=== PATIENT | female | born 1940 | race Caucasian/White ===

== ENCOUNTER 2016-08-29 14:30 | Emergency (ER) | payer OTHER, MEDICARE ==
[~2016-08-29] VITALS: Ht 160 cm; Wt 72.6 kg
[~2016-08-29 14:30] MED LIST: ARMOUR THYROID15 M1 PO; ARMOUR THYROID30 M1 PO; CYANOCOBAL1000 MCG/2 IM; CYCLOBENZAPRINE5 M2 PO; HYDROCHLOROTHIA25 M1 PO; XANAX0.5 M1 PO
--- NOTE | 2016-08-29 15:46 | ED CARDIAC/CP/PALPITATIONS ---
History of Present Illness General Chief Complaint: General Adult Stated Complaint: SENT BY DR ABREU FOR EVAL OF MID BACK PAIN Source: patient, family, old records Exam Limitations: no limitations Vital Signs & Intake/Output Vital Signs & Intake/Output Vital Signs Date Time Temp Pulse Resp B/P Pulse O2 O2 Flow FiO2 Ox Delivery Rate 08/29 1730 96.5 88 18 162/80 98 Room Air 08/29 1527 164/78 08/29 1516 98 Room Air 08/29 1438 97.8 98 20 179/93 97 Room Air ED Intake and Output 08/30 0000 08/29 1200 Intake Total Output Total Balance Patient 160 lb Weight Allergies Coded Allergies: Penicillins (Severe, ANAPHYLAXIS 10/08/15) codeine (RASH 10/08/15) Uncoded Allergies: STEROID (HYPERTENSION 10/08/15) Reconcile Medications Alprazolam (Xanax) 0.5 MG TABLET 1 TAB PO 4 TIMES/DAY ANXIETY (Reported) Cyanocobalamin (Vitamin B-12) (Cyanocobalamin Injection) 1,000 MCG/1 ML VIAL 1 ML IM Q30D SUPPLEMENT (Reported) Cyclobenzaprine HCl 5 MG TABLET 1 TAB PO TIDPRN PRN PAIN Hydrochlorothiazide 25 MG TABLET 1 TAB PO DAILY HTN Thyroid ([place] Thyroid) 15 MG TABLET 1 TAB PO DAILY THYROID (Reported) Thyroid ([place] Thyroid) 15 MG TABLET 1 TAB PO QMON THYROID (Reported) Thyroid,Pork ([place] Thyroid) 30 MG TABLET 1 TAB PO DAILY THYROID (Reported) Triage Note: PT TO ED C/O UPPER BACK PAIN AND CHEST PAIN. ALSO STATES HAS BEEN TAKING HER BP AT HOME AND IT HAS BEEN HIGH. CURRENT BP 179/93. C/O INDIGESTION TYPE CHEST PAIN. Triage Nurses Notes Reviewed? yes HPI: 76-year-old female with multiple medical complaints. She has history of hypertension, chronic upper back pain and fibromyalgia. 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 She was also getting some epigastric discomfort. Symptoms started yesterday evening after lifting a box she started feeling pain in the upper back. At 3 AM it woke her from sleep. She also states that she had a very spicy meal with possible sauce and pepperoni and she has history of reflux which caused some epigastric discomfort and burning sensation. She denies any actual chest pain or pressure sensation on her chest. There is no pain radiating into the back or tearing sensation. There is no neck pain or arm pain. Her pain is consistent with her usual for her myalgic pain she feels as though it is just worse than usual. She is not taking anything for pain. She notes that she believes she forgot to take her blood pressure medication yesterday but she did take her dose this morning (NANCY LEONARDO) Past History Travel History Traveled to [place] past 21 day No Medical History Any Pertinent Medical History? see below for history Cardiovascular: hypertension Musculoskeletal: fibromyalgia Psychiatric: anxiety Endocrine: hypothyroidism Surgical History Surgical History: non-contributory Psychosocial History What is your primary language Kosovan Tobacco Use: Never used ETOH Use: denies use Illicit Drug Use: denies illicit drug use Family History Hx Contributory? No (NANCY LEONARDO) Review of Systems Review of Systems Constitutional: Reports: see HPI. EENTM: Reports: no symptoms. Respiratory: Reports: no symptoms. Cardiovascular: Reports: see HPI. GI: Reports: see HPI. Genitourinary: Reports: no symptoms. Musculoskeletal: Reports: see HPI. Skin: Reports: no symptoms. Neurological/Psychological: Reports: no symptoms. Hematologic/Endocrine: Reports: no symptoms. Immunologic/Allergic: Reports: no symptoms. All Other Systems: Reviewed and Negative (NANCY LEONARDO) Physical Exam Physical Exam Cardiovascular: regular rate/rhythm Comments: Well-developed well-nourished person in no acute distress HEENT: Normal EENT exam, extraocular motion intact, no nystagmus. Pupils equally round and reactive to light. Nose is atraumatic. External auditory canal and Tympanic membranes clear. Pharynx normal. No swelling or edema. Neck: Supple, no lymphadenopathy, normal range of motion without pain or tenderness Back: Tenderness in the upper back at the medial scapular border region on the left side. No CVA tenderness. Full range of motion Cardiovascular: Regular rate and rhythms no murmurs, normal JVP Respiratory: Chest nontender. No respiratory distress. Breath sounds clear to auscultation bilaterally Abdomen: Soft, nontender nondistended, no appreciable organomegaly. Normal bowel sounds. No ascites Extremity: No edema, no calf tenderness to palpation, normal and equal pulses. Neuro: Alert oriented x3, motor sensory normal, cranial nerves II through XII grossly intact. Skin: No appreciable rash on exposed skin, skin is warm and dry. Psych: Mood and affect is normal, memory and judgment is normal. Core Measures ACS in differential dx? Yes Severe Sepsis Present: No Septic Shock Present: No (KENYON EARL,NANCY) Progress Differential Diagnosis: AMI, aortic dissection, atrial fibrillation, cholecystitis, CHF/pulm edema, costochondritis, hyperkalemia, hypovolemia, hyperthyroid, hyperventilation, intracranial hemorrhage, musculoskeletal pain, myocarditis, pancreatitis, pericarditis, pneumonia, pneumothorax, PSVT, pulmonary embolism, PUD/GERD, PVCs/PACs, respiratory failure, rib fracture, sepsis, unstable angina, V-fib/V-Tach, WPW syndrome Plan of Care: Orders Procedure Date/time Status GLYCOSYLATED HGB 08/29 1551 Active Telemetry/Personal Consultant 08/29 1537 Active THYROID STIMULATING HORMONE 08/29 1537 Complete TROPONIN LEVEL 08/29 1537 Complete T3 UPTAKE (THYROXINE BIND CAP) 08/29 1537 Complete FREE T4 08/29 1537 Complete D-DIMER 08/29 1537 Complete COMPREHENSIVE METABOLIC PANEL 08/29 1537 Complete CBC WITHOUT DIFFERENTIAL 08/29 1537 Complete EKG 08/29 1432 Active Laboratory Tests 08/29/16 1551: Hemoglobin A1c Pending 08/29/16 1551: TSH Cancelled, Free T4 Cancelled, Thyroxine Binding Indx Cancelled 08/29/16 1550: Anion Gap 13, Estimated GFR > 60, BUN/Creatinine Ratio 17.5, Glucose 111 H, Calcium 10.1, Total Bilirubin 1.0, AST 28, ALT 43, Alkaline Phosphatase 77, Troponin I < 0.01, Total Protein 8.9 H, Albumin 4.8, Globulin 4.1, Albumin/ Globulin Ratio 1.2, TSH 3.950, Free T4 0.56 L, Thyroxine Binding Indx 30.0, D- Dimer < 200, CBC w Diff NO MAN DIFF REQ, RBC 7.72 H, MCV 63.1 L, MCH 19.4 L, RDW 15.9 H, MPV 7.9, Gran % 74.6, Lymphocytes % 18.8 L, Monocytes % 5.7, Eosinophils % 0.6, Basophils % 0.3, Absolute Granulocytes 10.0 H, Absolute Lymphocytes 2.5, Absolute Monocytes 0.8 H, Absolute Eosinophils 0.1, Absolute Basophils 0, PUBS MCHC 30.8 L Diagnostic Imaging: Viewed by Me: Radiology Read. Discussed w/RAD: Radiology Read. CXR Impression: PATIENT: RUSS MORIN PRESENT AGE: 76 PATIENT ACCOUNT NO: [id number] : 41 LOCATION: ER ORDERING PHYSICIAN: NANCY EARL SERVICE DATE: 08/29/16 EXAM TYPE: RAD - XRY-CHEST XRAY, PA AND LATERAL EXAMINATION: XR CHEST CLINICAL INFORMATION: Chest pain COMPARISON: 07/02/2016 TECHNIQUE: PA and lateral views of the chest were obtained. FINDINGS: The lungs are clear with no focal consolidation. No evidence of pneumothorax, pulmonary edema, or pleural effusions. The cardiomediastinal silhouette is unremarkable. Left axillary clips are noted. No acute osseous findings. IMPRESSION: No acute cardiopulmonary findings. DICTATED BY: RAJIV MONTEJO MD DATE/TIME DICTATED:08/29/161549 BALLISTICS EXPERT FORENSIC:MELITA DATE/TIME TRANSCRIBED:08/29/161549 Initial ED EKG: NSR, rate (98), nonspecific ST T wave chg (INF) Prior EKG: unchanged Rhythm Strip: normal sinus rhythm Comments: Workup is unremarkable, did not feel so patient is having a dissection, her symptoms are pretty consistent with her fibromyalgia pain and reflux. Troponin and d-dimer are negative and chest x-ray is unremarkable. She was reevaluated and is feeling well and she is stable for discharge home (NANCY LEONARDO) Departure Departure Disposition: HOME OR SELF CARE Condition: Stable Clinical Impression Primary Impression: Upper back pain Secondary Impressions: GERD (gastroesophageal reflux disease) Qualifiers: Esophagitis presence: without esophagitis Qualified Code: K21.9 - Gastro-esophageal reflux disease without esophagitis Referrals: MIKE YBARRA MD (PCP/Family) Additional Instructions: Take your medications as directed. Follow-up with your primary care doctor or coding team lead as scheduled Departure Forms: Customer Survey General Discharge Information (NANCY LEONARDO) PA/MECHANICAL ESTIMATOR Co-Sign Statement Statement: ED Attending supervision documentation- [X] I saw and evaluated the patient. I have also reviewed all the pertinent lab results and diagnostic results. I agree with the findings and the plan of care as documented in the MADY's/MECHANICAL ESTIMATOR's documentation. [X] I have reviewed the ED Record and agree with the PA's/MECHANICAL ESTIMATOR's documentation. [] Additions or exceptions (if any) to the PAs/MECHANICAL ESTIMATOR's note and plan are summarized below: [] (DEMETRIO MARTINEZ,VALARIE) Critical Care Note Critical Care Note Critical Care Time: non-applicable (KENYON EARL,NANCY)
--- NOTE | 2016-08-29 15:57 | RADIOLOGY REPORT ---
EXAMINATION: XR CHEST CLINICAL INFORMATION: Chest pain COMPARISON: 07/02/2016 TECHNIQUE: PA and lateral views of the chest were obtained. FINDINGS: The lungs are clear with no focal consolidation. No evidence of pneumothorax, pulmonary edema, or pleural effusions. The cardiomediastinal silhouette is unremarkable. Left axillary clips are noted. No acute osseous findings. IMPRESSION: No acute cardiopulmonary findings.
[2016-08-29 16:03] LABS: ABSOLUTE BASOPHIL COUNT 0 /CUMM (0.0-0.2); ABSOLUTE EOSINOPHIL COUNT 0.1 /CUMM (0.0-0.7); ABSOLUTE LYMPH COUNT 2.5 /CUMM (1.2-3.4); ABSOLUTE MONOCYTE COUNT 0.8 /CUMM (0.10-0.60); BASOPHIL % 0.3 % (0.0-2.0); EOSINOPHIL % 0.6 % (0-5); GRANULOCYTE % 74.6 % (42.2-75.2); HEMATOCRIT 48.7 % (37-47); MEAN CORPUSCULAR HGB 19.4 PG (27.0-31.0); MEAN CORPUSCULAR HGB CONC 30.8 G/DL (33.0-37.0); MEAN CORPUSCULAR VOLUME 63.1 FL (81.0-99.0); MEAN PLATELET VOLUME 7.9 FL (7.4-10.4); PLATELET COUNT 241 /CUMM (130-400); RBC DISTRIBUTION WIDTH 15.9 % (11.5-14.5); WHITE BLOOD CELL COUNT 13.4 /CUMM (4.8-10.8)
[2016-08-29 16:13] LABS: RED BLOOD CELL CT 7.72 /CUMM (4.20-5.40)
[2016-08-29 17:30] VITALS: BP 162/80
== END 2016-08-29 17:32 ==
LOC: ERH 14:30
PROVIDERS: Physician Assistant Surgical
DX: M54.6 Pain in thoracic spine (principal); K21.9 Gastro-esophageal reflux disease without esophagitis; I10 Essential (primary) hypertension; R10.13 Epigastric pain; E03.9 Hypothyroidism, unspecified; Z79.899 Other long term (current) drug therapy
CPT/HCPCS: 93005; 93010

== ENCOUNTER 2018-03-11 01:00 | Emergency (ER) | payer OTHER, MEDICARE ==
[~2018-03-11] VITALS: Ht 157.5 cm; Wt 72.6 kg
[~2018-03-11 01:00] MED LIST changes: +ARMOUR THYROID60 M1 PO; +AZITHROMYCIN250 M1; +BYSTOLIC2.5 M1 PO
[2018-03-11 01:45] LABS: ABSOLUTE BASOPHIL COUNT 0.1 /CUMM (0.0-0.2); ABSOLUTE EOSINOPHIL COUNT 0.2 /CUMM (0.0-0.7); ABSOLUTE GRANULOCYTE CT 6.3 /CUMM (1.4-6.5); ABSOLUTE LYMPH COUNT 3.1 /CUMM (1.2-3.4); ABSOLUTE MONOCYTE COUNT 0.9 /CUMM (0.10-0.60); BASOPHIL % 0.6 % (0.0-2.0); EOSINOPHIL % 1.8 % (0-5); GRANULOCYTE % 59.9 % (42.2-75.2); MEAN CORPUSCULAR HGB 19.8 PG (27.0-31.0); MEAN CORPUSCULAR HGB CONC 31.5 G/DL (33.0-37.0); MEAN CORPUSCULAR VOLUME 62.9 FL (81.0-99.0); MEAN PLATELET VOLUME 7.9 FL (7.4-10.4); PLATELET COUNT 256 /CUMM (130-400); RED BLOOD CELL CT 6.68 /CUMM (4.20-5.40); WHITE BLOOD CELL COUNT 10.6 /CUMM (4.8-10.8)
--- NOTE | 2018-03-11 02:17 | ED GENERAL ADULT ---
History of Present Illness General Chief Complaint: General Adult Stated Complaint: HAND AND FEET WENT NUMB AFTER GI PREP,HIGH BP Source: patient Exam Limitations: no limitations Vital Signs & Intake/Output Vital Signs & Intake/Output ED Intake and Output 03/12 0000 03/11 1200 Intake Total 0 Output Total Balance 0 Intake, Oral 0 Patient 160 lb Weight Weight Reported by Patient Measurement Method Allergies Coded Allergies: Penicillins (Severe, ANAPHYLAXIS 04/11/17) aloe (HIVES, CONGESTION 04/11/17) codeine (RASH 04/11/17) dicyclomine (From BENTYL) (URINARY RETENTION 04/11/17) esomeprazole (From NEXIUM) (RED, "CAN'T BREATHE" 03/11/18) prednisone (HTN 04/11/17) Reconcile Medications Alprazolam (Xanax) 0.5 MG TABLET 1 TAB PO 4 TIMES/DAY ANXIETY (Reported) Azithromycin (Unknown Strength) TABLET (Unknown Dose) UNKNOWN (Reported) Cyanocobalamin (Vitamin B-12) (Cyanocobalamin Injection) 1,000 MCG/1 ML VIAL 1 ML IM Q30D SUPPLEMENT (Reported) Hydrochlorothiazide 25 MG TABLET 1 TAB PO DAILY HTN Nebivolol HCl (Bystolic) 2.5 MG TABLET 1 TAB PO DAILY HEART/BP (Reported) Thyroid,Pork ([place] Thyroid) 60 MG TABLET 1 TAB PO DAILY THYROID (Reported) Triage Note: PT TO ED C/O EDIL HAND AND BOTTOM OF FEET NUMBNESS AFTER TAKING MoviPrep FOR MORNING COLONOSCOPY. TOO K MAG [employer] A COUPLE OF DAYS AGO "IT DIDN'T CLEAN ME OUT, I JUST PASSED WATER" "I CALLED THEM AND THEY TOLD ME TO TRY THIS MoviPrep" STATES HAD 3 OR 4 BOOSTS YESTERDAY. "THE BOX SAID TO GET MY ELECTROLYTES CHECKED IF I DEVELOPED ANY NUMBNESS" NUMBNESS ;AST A COUPLE HOURS IN THE AFTERNOON, CAME BACK AT 2330, STILL PRESENT AT THIS TIME. BP AT 178/80. BP IN TRIAGE 159/79. CALLED DR KARRIE CALDWELL [phone], DID NOT LEAVE MESSAGE. CAME TO ED Triage Nurses Notes Reviewed? yes HPI: 77-year-old female thank you with the past medical history of hypertension, hypothyroidism, GERD, presented to the emergency department with numbness and tingling of hands and feet 1 day. The patient is undergoing bowel prep for a colonoscopy in 9 AM Friday morning with MoviPrep. The patient has not eaten solid food for the past 3 days and is just taking clear liquids. Her last p.o. intake was 11 and [place] Gatorade. Her bowel movements lately have been watery and clear. Does not complain of chest pain/shortness of breath/fevers/chills/weakness/ burning micturition/hematuria. (Idania Buitrago MD) Past History Travel History Traveled to [place] past 21 day No Medical History Any Pertinent Medical History? see below for history Cardiovascular: hypertension Gastrointestinal: constipation, GERD Musculoskeletal: fibromyalgia Psychiatric: anxiety Endocrine: hypothyroidism Surgical History Surgical History: non-contributory Psychosocial History What is your primary language Maltese Tobacco Use: Never used ETOH Use: denies use Illicit Drug Use: denies illicit drug use Family History Hx Contributory? Yes (Idania Buitrago MD) Review of Systems Review of Systems Constitutional: Reports: no symptoms. EENTM: Reports: no symptoms. Respiratory: Reports: no symptoms. Cardiovascular: Reports: no symptoms. GI: Reports: see HPI. Genitourinary: Reports: no symptoms. Musculoskeletal: Reports: no symptoms. Skin: Reports: no symptoms. Neurological/Psychological: Reports: see HPI, numbness, paresthesia, tingling. Denies: anxiety, ataxia, cognitive dysfunction, confusion, depressed, dementia, emotional problems, headache, pre-existing deficit, petit mal seizures, tremors, tonic-clonic seizures, unable to move lower ext, unable to move upper ext, weakness. Hematologic/Endocrine: Reports: no symptoms. Immunologic/Allergic: Reports: no symptoms. (Idania Buitrago MD) Physical Exam Physical Exam General Appearance: well developed/nourished, no apparent distress, alert, awake , comfortable Head: atraumatic, normal appearance Eyes: Bilateral: normal appearance, EOMI. Ears, Nose, Throat: normal pharynx, normal ENT inspection, hearing grossly normal Neck: normal inspection, supple Respiratory: normal breath sounds, chest non-tender, lungs clear Cardiovascular: regular rate/rhythm Peripheral Pulses: 4+ radial (R), 4+ radial (L), 4+ dorsalis pedis (R), 4+ dorsalis pedis (L) Gastrointestinal: normal bowel sounds, soft, non-tender, no organomegaly Extremities: normal inspection, no edema Neurologic/Psych: awake, alert, oriented x 3, normal gait, normal mood/affect, sensations dec b/l lower limbs Reflexes: 1+: knee (R), knee (L), ankle (R), ankle (L). 2+: bicep (R), bicep (L), tricep (L), tricep (L). Skin: normal color, warm/dry Core Measures ACS in differential dx? No CVA/TIA Diagnosis: No Sepsis Present: No Sepsis Focused Exam Completed? Yes (Idania Buitrago MD) Progress Differential Diagnoses I considered the following diagnoses in my evaluation of the patient: TIA? Hypokalemia? Plan of Care: Orders Procedure Date/time Status MAGNESIUM 03/11 123 Complete COMPREHENSIVE METABOLIC PANEL 03/11 123 Complete CBC WITHOUT DIFFERENTIAL 03/11 123 Complete Current Medications Sig/Von Start time Last Medication Dose Stop Time Status Admin Potassium Chloride 20 MEQ ONCE ONE 03/11 245 UNVr (Klor) 03/11 246 Laboratory Tests 03/11/18 0130: Anion Gap 11, Estimated GFR > 60, BUN/Creatinine Ratio 21.4, Glucose 112 H, Calcium 9.5, Magnesium 1.8, Total Bilirubin 1.0, AST 26, ALT 33, Alkaline Phosphatase 58, Total Protein 7.8, Albumin 4.2, Globulin 3.6, Albumin/Globulin Ratio 1.2, CBC w Diff NO MAN DIFF REQ, RBC 6.68 H, MCV 62.9 L, MCH 19.8 L, MCHC 31.5 L, RDW 16.0 H, MPV 7.9, Gran % 59.9, Lymphocytes % 29.1, Monocytes % 8.6, Eosinophils % 1.8, Basophils % 0.6, Absolute Granulocytes 6.3, Absolute Lymphocytes 3.1, Absolute Monocytes 0.9 H, Absolute Eosinophils 0.2, Absolute Basophils 0.1 Initial ED EKG: none (Idania Buitrago MD) Departure Departure Disposition: HOME OR SELF CARE Condition: Stable Clinical Impression Primary Impression: Hypokalemia due to loss of potassium Referrals: Larry MARTINEZ,Michael Argueta (PCP/Family) Additional Instructions: -Please follow-up with your primary care physician after discharge -Please follow-up with your advertising sales manager after discharge -Please come to the emergency department if you have worsening numbness/tingling /chest pain/shortness of breath/fever/chills Departure Forms: Customer Survey General Discharge Information (Idania Buitrago MD) Resident Co-Sign Statement Statement: ED Attending supervision documentation- [x] I saw and evaluated the patient. I have also reviewed all the pertinent lab results and diagnostic results. I agree with the findings and the plan of care as documented in the Resident's documentation. [] I have reviewed the ED Record and agree with the Resident's documentation. [] Additions or exceptions (if any) to the Resident's note and plan are summarized below: [] (Antonia MARTINEZ,Ghanshyam Barney) Critical Care Note Critical Care Note Critical Care Time: non-applicable (Idania Buitrago MD) ED Attending Observation Initial Observation Note: I have seen and personally examined RUSS MORIN on 03/11/18 at 0336. I agree with the current emergency department documentation. The disposition (admission or discharge) is uncertain at this time, she needs a period of observation for the following reason(s): Hypokalemia The ED Nurse caring for this patient has been personally informed as to what the patient is being observed for. (Idania Buitrago MD)
[2018-03-11 03:51] VITALS: BP 141/74
== END 2018-03-11 03:57 ==
LOC: ERH 01:00
PROVIDERS: Emergency Medicine
DX: E87.6 Hypokalemia (principal); I10 Essential (primary) hypertension; R20.0 Anesthesia of skin